=== PATIENT | male | born 1990 | race Asian ===

== ENCOUNTER 2018-03-19 15:12 | Emergency (ER) | payer SELFPAY, MEDICAID | END 2018-03-19 16:53 | disposition home or self-care (01) | LOC: FTE 15:12 | DX: M25.512 Pain in left shoulder (principal) | CPT/HCPCS: 73030; 73030-RT; 99283-25 ==

== ENCOUNTER 2018-05-24 15:17 | Emergency (ER) | payer SELFPAY, OTHER ==
[2018-05-24] MEDS: HYDROCODONE/APAP (5/325) TAB PO (17:19)
[2018-05-24] MEDS: KETOROLAC 60 MG INJ IM (17:19)
[2018-05-24] MEDS: LIDOCAINE 4% CR TOP (17:37)
[2018-05-24] MEDS: LIDOCAINE 1% (MDV) 20 ML INJ SC (17:37)
== END 2018-05-24 18:43 | disposition home or self-care (01) ==
LOC: FTE 18:43
DX: L02.413 Cutaneous abscess of right upper limb (principal)
CPT/HCPCS: 10060; 96372; 99284-25

== ENCOUNTER 2018-05-27 12:36 | Emergency (ER) | payer SELFPAY | END 2018-05-27 16:45 | disposition home or self-care (01) | LOC: FTE 12:36 | DX: Z48.01 Encounter for change or removal of surgical wound dressing (principal) | CPT/HCPCS: 99283 ==